=== PATIENT | male | born 1955 | race Two or more races ===

== ENCOUNTER 2016-04-02 16:07 | Inpatient (IN) | payer MEDICAID ==
[~2016-04-02] VITALS: Ht 177.8 cm; Wt 95.3 kg
[2016-04-02 16:19] VITALS: BP 110/62
[2016-04-02] MEDS ORDERED: Famotidine 20 MG/ 2ML VIAL IVP ONE (16:45)
[2016-04-02] MEDS ORDERED: Nitroglycerin 2% oint pkt TOPIC ONE (16:45)
[2016-04-02 16:58] LABS: BASOPHILS % (AUTO) 0.8 % (0.0-2.0); EOSINOPHILS % (AUTO) 0.6 % (0.0-3.0); LYMPHOCYTES % (AUTO) 17.8 % (20.0-45.0); MEAN CORPUSCULAR HEMOGLOBIN 31.9 PG (27.0-31.0); MEAN CORPUSCULAR HGB CONC 33.7 G/DL (32.0-36.0); MEAN CORPUSCULAR VOLUME 95 FL (80-99); MEAN PLATELET VOLUME 7.2 FL (6.5-10.1); MONOCYTES % (AUTO) 6.4 % (1.0-10.0); NEUTROPHILS % (AUTO) 74.5 % (45.0-75.0); PLATELET COUNT 127 K/UL (150-450); RED BLOOD COUNT 5.01 M/UL (4.70-6.10); RED CELL DISTRIBUTION WIDTH 12.2 % (11.6-14.8); WHITE BLOOD COUNT 6.3 K/UL (4.8-10.8)
[2016-04-02 17:04] LABS: INR 1.1 (0.9-1.1); PROTHROMBIN TIME 11.2 SEC (9.30-11.50)
[2016-04-02 17:10] LABS: TROPONIN I < 0.30 ng/mL (<=0.30)
[2016-04-02 17:12] LABS: ALANINE AMINOTRANSFERASE 39 U/L (3-41); ALBUMIN/GLOBULIN RATIO 1.3 (1.0-2.7); ANION GAP 11 (5-15); ASPARTATE AMINO TRANSFERASE 28 U/L (5-40); CARBON DIOXIDE 28 mEQ/L (20-30); CHLORIDE 103 mEQ/L (98-107); CREATININE 1.2 mg/dL (0.7-1.2); GLOMERULAR FILTRATION RATE > 60 mL/min (>60); HEMOLYSIS 18; POTASSIUM 4.8 mEQ/L (3.4-4.9); SODIUM 142 mEQ/L (135-145); TOTAL PROTEIN 6.8 g/dL (6.6-8.7)
[2016-04-02] MEDS ORDERED: Nitroglycerin Subl 0.4mg tab (Bottle Of 25) SL PRN (19:15)
[2016-04-02] MEDS ORDERED: Miralax 17gm pkt ORAL PRN (19:15)
[2016-04-02] MEDS ORDERED: Ketorolac 30mg Inj IV PRN (19:15)
[2016-04-02] MEDS ORDERED: DuoNeb 0.5-3(2.5)mg/3ml neb HHN PRN (19:15)
[2016-04-02] MEDS ORDERED: Morphine Sulfate 2mg/ml Inj IVP PRN (19:15)
[2016-04-02] MEDS ORDERED: Enalaprilat 2.5mg/2ml Inj IV PRN (19:15)
--- NOTE | 2016-04-02 21:53 | Emergency Room Report ---
History of Present Illness General Chief Complaint: Chest Pain Source: Patient Present Illness HPI Patient presents with chest pain. He was on the bus and exerted himself and felt pressure in the left side of his chest radiating to his shoulder and back. He felt the same pain about 2 months ago as he was exercising. His doctor evaluated him felt that he needed another treadmill. This was scheduled tomorrow. The patient does have angina and has had 5 stents placed. He he was exposed to secondhand smoke. He rates the pain in his chest as 0/10, but has pressure. Pain in his legs is 5/10 from neuropathy. He is on several medications for this , most recently lyrica. Previously he had neurontin, but this led to dizziness and was stopped. He sees a chronic pain doctor. 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 Today the patient also was diaphoretic and had nausea. He was given aspirin and nitroglycerin by paramedics. This led to the pain resolving but he still has pressure in his chest. Also feels some dizziness. No fever, chills, vomiting, diarrhea, melena, headache, rashes, anxiety, joint pain. Allergies: Coded Allergies: NAPROXEN (Verified Allergy, Unknown, 04/02/16) Patient History Past Medical History: see triage record Past Surgical History: PTCA Social History: Reports: smoking - second hand only Social History Narrative at home by self - daughters in [place] who want him to go there. Reviewed Nursing Documentation: PMH: Agreed, PSxH: Agreed Nursing Documentation-PMH Hx Hypertension: Yes - HYPERLIDEMIA Review of Systems All Other Systems: negative except mentioned in HPI Physical Exam Vital Signs Date Time Temp Pulse Resp B/P Pulse Ox O2 Delivery O2 Flow Rate FiO2 04/02/16 16:03 72 16 105/71 98 Room Air 04/02/16 16:19 98.6 Sp02 EP Interpretation: reviewed, normal General Appearance: well appearing, no apparent distress, GCS 15 Head: normocephalic Eyes: bilateral eye PERRL, bilateral eye normal inspection ENT: moist mucus membranes Neck: supple Respiratory: chest non-tender, lungs clear, normal breath sounds Cardiovascular #1: regular rate, rhythm Cardiovascular #2: 2+ radial (L) Gastrointestinal: normal inspection, normal bowel sounds, non tender, no mass, non-distended Musculoskeletal: back normal, gait/station normal, normal range of motion Neurologic: alert, oriented x3, grossly normal Psychiatric: mood/affect normal Skin: normal inspection, warm/dry Medical Decision Making Diagnostic Impression: Primary Impression: ACS (acute coronary syndrome) Additional Impression: Neuropathic pain of both legs ER Course Patient presents with chest pain and pressure post multiple angioplasties. Recent exertional symptoms. Ddx: ACS, AMI, chest wall pain, GERD, anxiety amongst others. Emergent evaluation with labs, EKG, CXR. Treatment in field with aspirin and nitrates helped. Will continue nitrolpaste as well as cardiac monitoring. Patient declines further pain treatment. EKG without injury. Labs with negative troponin. Patient has significant cardiac risk factors. Patient needs to be admitted to the hospital for observation with serial troponins done. He is improved right now however he still feels some dizziness. Nitrates stopped. Improved dizziness after d/c nitrates. Admit telemetry Dr. Preciado. Laboratory Tests Test 04/02/16 16:45 White Blood Count 6.3 K/UL (4.8-10.8) Red Blood Count 5.01 M/UL (4.70-6.10) Hemoglobin 16.0 G/DL (14.2-18.0) Hematocrit 47.4 % (42.0-52.0) Mean Corpuscular Volume 95 FL (80-99) Mean Corpuscular Hemoglobin 31.9 PG (27.0-31.0) H Mean Corpuscular Hemoglobin Concent 33.7 G/DL (32.0-36.0) Red Cell Distribution Width 12.2 % (11.6-14.8) Platelet Count 127 K/UL (150-450) L Mean Platelet Volume 7.2 FL (6.5-10.1) Neutrophils (%) (Auto) 74.5 % (45.0-75.0) Lymphocytes (%) (Auto) 17.8 % (20.0-45.0) L Monocytes (%) (Auto) 6.4 % (1.0-10.0) Eosinophils (%) (Auto) 0.6 % (0.0-3.0) Basophils (%) (Auto) 0.8 % (0.0-2.0) Prothrombin Time 11.2 SEC (9.30-11.50) Prothrombin Time INR 1.1 (0.9-1.1) PTT 21 SEC (23-33) L Sodium Level 142 mEQ/L (135-145) Potassium Level 4.8 mEQ/L (3.4-4.9) Chloride Level 103 mEQ/L (98-107) Carbon Dioxide Level 28 mEQ/L (20-30) Anion Gap 11 (5-15) Blood Urea Nitrogen 16 mg/dL (7-23) Creatinine 1.2 mg/dL (0.7-1.2) Estimate Glomerular Filtration Rate > 60 mL/min (>60) Glucose Level 140 mg/dL (74-106) H Calcium Level 9.0 mg/dL (8.6-10.2) Total Bilirubin 0.9 mg/dL (0.0-1.2) Aspartate Amino Transferase (AST) 28 U/L (5-40) Alanine Aminotransferase (ALT) 39 U/L (3-41) Alkaline Phosphatase 77 U/L (40-129) Total Creatine Kinase 384 U/L (38-174) H Troponin I < 0.30 ng/mL (<=0.30) Pro-B-Type Natriuretic Peptide 44 pg/mL (0-125) Total Protein 6.8 g/dL (6.6-8.7) Albumin 3.9 g/dL (3.5-5.2) Globulin 2.9 g/dL Albumin/Globulin Ratio 1.3 (1.0-2.7) EKG Diagnostic Results Rate: normal Rhythm: NSR ST Segments: no acute changes Rhythm Strip Diag. Results EP Interpretation: yes Rhythm: NSR, no PVC's, no ectopy Chest X-Ray Diagnostic Results EP Interpretation: Yes Findings: no consolidation, no effusion, no pneumothorax, no acute cardiopulmonary disease Number of Views: 1 Last Vital Signs Date Time Temp Pulse Resp B/P Pulse Ox O2 Delivery O2 Flow Rate FiO2 04/02/16 16:50 106/61 04/02/16 16:34 66 16 Room Air 04/02/16 16:19 98.6 99 Status: improved Disposition: ADMITTED INPATIENT Condition: Serious Referrals: NOT CHOSEN EMILY/,REFERRING (PCP) Marcos Virgen M.D. Apr 02, 2016 21:53
[2016-04-02 23:19] LABS: APPEARANCE,URINE CLEAR; KETONES,URINE NEGATIVE (NEGATIVE); LEUKOCYTE ESTERASE ,URINE 1+ (NEGATIVE); NITRITE,URINE NEGATIVE (NEGATIVE); PH,URINE 6 (4.5-8.0); PROTEIN,URINE 1+ (NEGATIVE); UROBILINOGEN,URINE NORMAL MG/DL (0.0-1.0)
[2016-04-02 23:30] VITALS: BP 110/65
[2016-04-02 23:42] LABS: BACTERIA,URINE FEW /HPF; MUCUS,URINE FEW /LPF (NONE/OCC); RBC,URINE 0 /HPF (0 - 0); SQUAMOUS EPITHELIAL CELL,UR FEW /LPF (NONE/OCC); WBC,URINE 0-2 /HPF (0 - 0)
[2016-04-03] MEDS ORDERED: UNOBMED (01:29)
[2016-04-03] MEDS ORDERED: REGLAN10 MG ORAL ×2 (01:37→04:06)
[2016-04-03] MEDS ORDERED: HYDROCODON-ACE1 EA13 ORAL (01:37)
[2016-04-03] MEDS ORDERED: VENTOLIN HFA18 GM INH (01:37)
[2016-04-03] MEDS ORDERED: DIPHENHYDRAMINE25 M1 ORAL ×2 (01:37→04:06)
[2016-04-03] MEDS ORDERED: ZANTAC150 MG ORAL (01:37)
[2016-04-03] MEDS ORDERED: ASPIR 8181 MG ORAL (01:37)
[2016-04-03] MEDS ORDERED: AMLODIPINE BESY10 MG ORAL (01:37)
[2016-04-03] MEDS ORDERED: ATORVASTATIN CA80 MG ORAL (01:37)
[2016-04-03] MEDS ORDERED: BACLOFEN20 MG ORAL (01:37)
[2016-04-03] MEDS ORDERED: NITROSTAT0.4 M1 SL (01:37)
[2016-04-03] MEDS ORDERED: MELOXICAM15 MG PO (01:37)
[2016-04-03] MEDS ORDERED: LYRICA25 MG ORAL (01:37)
[2016-04-03] MEDS ORDERED: LISINOPRIL20 MG ORAL (01:37)
[2016-04-03] MEDS ORDERED: ISOSORBIDE DINI30 MG ORAL (01:37)
[2016-04-03] MEDS ORDERED: RANEXA500 MG ORAL (01:37)
[2016-04-03] MEDS ORDERED: HYDROCHLOROTHIA25 MG ORAL (01:37)
[2016-04-03] MEDS ORDERED: TRAMADOL HCL50 MG ORAL (01:37)
[2016-04-03] MEDS ORDERED: FISH OIL CAP1000 MG ORAL (01:38)
[2016-04-03 01:40] VITALS: BP 120/68
[2016-04-03 04:00] VITALS: BP 135/79
--- NOTE | 2016-04-03 07:19 | Cardiology Progress Note ---
Assessment/Plan Assessment/Plan chest pain cad hs of pci htn obeisty awiat 2nd trop if neg to have stress test he was on his way to dr santana office to have a stres test yest he sat when he devlopped wade n if stres test neg ok to dc home Objective Last 24 Hour Vital Signs Date Time Temp Pulse Resp B/P Pulse Ox O2 Delivery O2 Flow Rate FiO2 04/03/16 04:00 61 04/03/16 04:00 98.0 56 18 135/79 98 Room Air 04/03/16 01:40 98.2 81 16 120/68 100 Room Air 04/03/16 01:40 98.2 81 16 120/68 100 Room Air 04/02/16 23:30 98.4 78 16 110/65 100 Room Air 04/02/16 16:50 106/61 04/02/16 16:34 66 16 Room Air 04/02/16 16:19 98.6 66 16 110/62 99 Room Air 04/02/16 16:03 72 16 105/71 98 Room Air Intake and Output 04/02/16 04/03/16 19:00 07:00 Intake Total 240 ml Balance 240 ml Intake Oral 240 ml # Voids 4 Laboratory Tests Test 04/02/16 16:45 04/02/16 23:00 White Blood Count 6.3 K/UL (4.8-10.8) Red Blood Count 5.01 M/UL (4.70-6.10) Hemoglobin 16.0 G/DL (14.2-18.0) Hematocrit 47.4 % (42.0-52.0) Mean Corpuscular Volume 95 FL (80-99) Mean Corpuscular Hemoglobin 31.9 PG (27.0-31.0) H Mean Corpuscular Hemoglobin Concent 33.7 G/DL (32.0-36.0) Red Cell Distribution Width 12.2 % (11.6-14.8) Platelet Count 127 K/UL (150-450) L Mean Platelet Volume 7.2 FL (6.5-10.1) Neutrophils (%) (Auto) 74.5 % (45.0-75.0) Lymphocytes (%) (Auto) 17.8 % (20.0-45.0) L Monocytes (%) (Auto) 6.4 % (1.0-10.0) Eosinophils (%) (Auto) 0.6 % (0.0-3.0) Basophils (%) (Auto) 0.8 % (0.0-2.0) Prothrombin Time 11.2 SEC (9.30-11.50) Prothromb Time International Ratio 1.1 (0.9-1.1) Activated Partial Thromboplast Time 21 SEC (23-33) L Sodium Level 142 mEQ/L (135-145) Potassium Level 4.8 mEQ/L (3.4-4.9) Chloride Level 103 mEQ/L (98-107) Carbon Dioxide Level 28 mEQ/L (20-30) Anion Gap 11 (5-15) Blood Urea Nitrogen 16 mg/dL (7-23) Creatinine 1.2 mg/dL (0.7-1.2) Estimat Glomerular Filtration Rate > 60 mL/min (>60) Glucose Level 140 mg/dL (74-106) H Calcium Level 9.0 mg/dL (8.6-10.2) Total Bilirubin 0.9 mg/dL (0.0-1.2) Aspartate Amino Transf (AST/SGOT) 28 U/L (5-40) Alanine Aminotransferase (ALT/SGPT) 39 U/L (3-41) Alkaline Phosphatase 77 U/L (40-129) Total Creatine Kinase 384 U/L (38-174) H Troponin I < 0.30 ng/mL (<=0.30) Pro-B-Type Natriuretic Peptide 44 pg/mL (0-125) Total Protein 6.8 g/dL (6.6-8.7) Albumin 3.9 g/dL (3.5-5.2) Globulin 2.9 g/dL Albumin/Globulin Ratio 1.3 (1.0-2.7) Urine Color Yellow Urine Appearance Clear Urine pH 6 (4.5-8.0) Urine Specific [place] 1.020 (1.005-1.035) Urine Protein 1+ (NEGATIVE) H Urine Glucose (UA) 1+ (NEGATIVE) H Urine Ketones Negative (NEGATIVE) Urine Occult Blood Negative (NEGATIVE) Urine Nitrite Negative (NEGATIVE) Urine Bilirubin Negative (NEGATIVE) Urine Urobilinogen Normal MG/DL (0.0-1.0) Urine Leukocyte Esterase 1+ (NEGATIVE) H Urine RBC 0 /HPF (0 - 0) Urine WBC 0-2 /HPF (0 - 0) Urine Squamous Epithelial Cells Few /LPF (NONE/OCC) Urine Bacteria Few /HPF (NONE) Urine Mucus Few /LPF (NONE/OCC) H Urine Opiates Screen Positive (NEGATIVE) H Urine Barbiturates Screen Negative (NEGATIVE) Phencyclidine (PCP) Screen Negative (NEGATIVE) Urine Amphetamines Screen Positive (NEGATIVE) H Urine Benzodiazepines Screen Negative (NEGATIVE) Urine Cocaine Screen Negative (NEGATIVE) Urine Marijuana (THC) Screen Negative (NEGATIVE) FRANCHESCA STEPHEN Apr 03, 2016 07:19
[2016-04-03] MEDS ORDERED: Norco 10mg/325mg tab ORAL PRN (07:30)
[2016-04-03] MEDS ORDERED: traMADol 50mg tab ORAL PRN (07:30)
[2016-04-03 07:44] LABS: BASOPHILS % (AUTO) 0.9 % (0.0-2.0); EOSINOPHILS % (AUTO) 0.8 % (0.0-3.0); LYMPHOCYTES % (AUTO) 27.6 % (20.0-45.0); MEAN CORPUSCULAR HEMOGLOBIN 32.6 PG (27.0-31.0); MEAN CORPUSCULAR HGB CONC 34.9 G/DL (32.0-36.0); MEAN CORPUSCULAR VOLUME 93 FL (80-99); MEAN PLATELET VOLUME 8.3 FL (6.5-10.1); NEUTROPHILS % (AUTO) 63.7 % (45.0-75.0); PLATELET COUNT 131 K/UL (150-450); RED BLOOD COUNT 4.79 M/UL (4.70-6.10); RED CELL DISTRIBUTION WIDTH 12.2 % (11.6-14.8); WHITE BLOOD COUNT 5.5 K/UL (4.8-10.8)
[2016-04-03 07:50] LABS: TROPONIN I < 0.30 ng/mL (<=0.30)
[2016-04-03 07:56] VITALS: BP 129/78
[2016-04-03 07:57] LABS: INR 1.1 (0.9-1.1); PROTHROMBIN TIME 11.4 SEC (9.30-11.50)
[2016-04-03 08:36] LABS: CHOLESTEROL 156 mg/dL (< 200); CHOLESTEROL/HDL RATIO 4.5 (3.3-4.4); CRP QUANT < 0.3 mg/dL (< 0.5); HEMOLYSIS 17; LDL CHOLESTEROL (CALC.) 74 mg/dL (60-99)
[2016-04-03] MEDS ORDERED: Heparin 5000 units/ml inj SUBQ SCH (09:00)
[2016-04-03] MEDS ORDERED: Aspirin Baby 81mg ORAL SCH (09:00)
[2016-04-03] MEDS ORDERED: Lyrica 25mg cap ORAL SCH (09:00)
[2016-04-03] MEDS ORDERED: Aspirin EC 81mg tab ORAL SCH (11:15)
[2016-04-03 11:23] VITALS: BP 140/81
[2016-04-03] MEDS ORDERED: Atorvastatin 80mg tab ORAL SCH (11:30)
[2016-04-03] MEDS ORDERED: Meloxicam 15 MG TAB ORAL SCH (11:30)
--- NOTE | 2016-04-03 11:58 | History and Physical ---
History of Present Illness General Date patient seen: Apr 03, 2016 Reason for Hospitalization: Chest Pain Present Illness HPI 61 year old male with hx of CAD and PCI presented to ER with chest pain. The patient does have angina and has had 5 stents placed. He rates the pain in his chest as 0/10, but has pressure. pt is admitted telemetry for further evaluation Allergies: Coded Allergies: NAPROXEN (Verified Allergy, Unknown, 04/02/16) Medication History Scheduled Albuterol Sulfate (Ventolin Hfa), 2 PUFFS INH EVERY 6 HOURS, (Reported) Amlodipine Besylate* (Amlodipine Besylate*), 10 MG ORAL DAILY, (Reported) Aspirin* (Aspir 81*), 81 MG ORAL DAILY, (Reported) Atorvastatin Calcium* (Lipitor*), 80 MG ORAL DAILY, (Reported) Baclofen* (Lioresal*), 20 MG ORAL BID, (Reported) Diphenhydramine Hcl* (Diphenhydramine Hcl*), 50 MG ORAL Q8H, (Reported) Hydrochlorothiazide* (Hydrochlorothiazide*), 25 MG ORAL DAILY, (Reported) Isosorbide Dinitrate* (Isordil*), 30 MG ORAL DAILY, (Reported) Lisinopril (Lisinopril*), 20 MG ORAL BID, (Reported) Meloxicam* (Meloxicam*), 15 MG PO DAILY, (Reported) Metoclopramide Hcl* (Reglan*), 10 MG ORAL BID, (Reported) Pregabalin (Lyrica), 25 MG ORAL BID, (Reported) Ranitidine Hcl* (Zantac*), 150 MG ORAL BID, (Reported) Ranolazine* (Ranexa*), 500 MG ORAL BID, (Reported) Scheduled PRN Hydrocodone Bit/Acetaminophen 10-325* (Hydrocodon-Acetaminophn 10-325*), 1 TAB ORAL Q6H PRN for For Pain, (Reported) Nitroglycerin (Nitrostat), 0.4 MG SL Q5M X3 DOSES PRN for CHEST PAIN, (Reported) Tramadol Hcl* (Ultram*), 50 MG ORAL Q6H PRN for For Pain, (Reported) Discontinued Medications Fish Oil (Fish Oil 1,000 mg Capsule), 1,000 MG ORAL, (Reported) Discontinued Reason: Pt stopped taking med Patient History Healthcare decision maker Resuscitation status Full Code Advanced Directive on File Past Medical/Surgical History Past Medical/Surgical History: (1) CAD (coronary artery disease) (2) Neuropathic pain of both legs Review of Systems All Other Systems: negative except mentioned in HPI Physical Exam General Appearance: WD/WN, no apparent distress Lines, tubes and drains: peripheral, central line HEENT: normocephalic, atraumatic Neck: non-tender, normal alignment Respiratory/Chest: chest wall non-tender, lungs clear Cardiovascular/Chest: normal peripheral pulses, normal rate Abdomen: normal bowel sounds Last 24 Hour Vital Signs Date Time Temp Pulse Resp B/P Pulse Ox O2 Delivery O2 Flow Rate FiO2 04/03/16 11:23 97.9 56 20 140/81 100 Room Air 04/03/16 07:56 97.3 54 20 129/78 97 Room Air 04/03/16 04:00 61 04/03/16 04:00 98.0 56 18 135/79 98 Room Air 04/03/16 01:40 98.2 81 16 120/68 100 Room Air 04/03/16 01:40 98.2 81 16 120/68 100 Room Air 04/02/16 23:30 98.4 78 16 110/65 100 Room Air 04/02/16 16:50 106/61 04/02/16 16:34 66 16 Room Air 04/02/16 16:19 98.6 66 16 110/62 99 Room Air 04/02/16 16:03 72 16 105/71 98 Room Air Intake and Output 04/02/16 04/03/16 19:00 07:00 Intake Total 240 ml Balance 240 ml Intake Oral 240 ml # Voids 4 Laboratory Tests Test 04/02/16 16:45 04/02/16 23:00 04/03/16 07:00 White Blood Count 6.3 K/UL (4.8-10.8) 5.5 K/UL (4.8-10.8) Red Blood Count 5.01 M/UL (4.70-6.10) 4.79 M/UL (4.70-6.10) Hemoglobin 16.0 G/DL (14.2-18.0) 15.6 G/DL (14.2-18.0) Hematocrit 47.4 % (42.0-52.0) 44.7 % (42.0-52.0) Mean Corpuscular Volume 95 FL (80-99) 93 FL (80-99) Mean Corpuscular Hemoglobin 31.9 PG (27.0-31.0) H 32.6 PG (27.0-31.0) H Mean Corpuscular Hemoglobin Concent 33.7 G/DL (32.0-36.0) 34.9 G/DL (32.0-36.0) Red Cell Distribution Width 12.2 % (11.6-14.8) 12.2 % (11.6-14.8) Platelet Count 127 K/UL (150-450) L 131 K/UL (150-450) L Mean Platelet Volume 7.2 FL (6.5-10.1) 8.3 FL (6.5-10.1) Neutrophils (%) (Auto) 74.5 % (45.0-75.0) 63.7 % (45.0-75.0) Lymphocytes (%) (Auto) 17.8 % (20.0-45.0) L 27.6 % (20.0-45.0) Monocytes (%) (Auto) 6.4 % (1.0-10.0) 7.0 % (1.0-10.0) Eosinophils (%) (Auto) 0.6 % (0.0-3.0) 0.8 % (0.0-3.0) Basophils (%) (Auto) 0.8 % (0.0-2.0) 0.9 % (0.0-2.0) Prothrombin Time 11.2 SEC (9.30-11.50) 11.4 SEC (9.30-11.50) Prothromb Time International Ratio 1.1 (0.9-1.1) 1.1 (0.9-1.1) Activated Partial Thromboplast Time 21 SEC (23-33) L 25 SEC (23-33) Sodium Level 142 mEQ/L (135-145) Potassium Level 4.8 mEQ/L (3.4-4.9) Chloride Level 103 mEQ/L (98-107) Carbon Dioxide Level 28 mEQ/L (20-30) Anion Gap 11 (5-15) Blood Urea Nitrogen 16 mg/dL (7-23) Creatinine 1.2 mg/dL (0.7-1.2) Estimat Glomerular Filtration Rate > 60 mL/min (>60) Glucose Level 140 mg/dL (74-106) H Calcium Level 9.0 mg/dL (8.6-10.2) Total Bilirubin 0.9 mg/dL (0.0-1.2) Aspartate Amino Transf (AST/SGOT) 28 U/L (5-40) Alanine Aminotransferase (ALT/SGPT) 39 U/L (3-41) Alkaline Phosphatase 77 U/L (40-129) Total Creatine Kinase 384 U/L (38-174) H Troponin I < 0.30 ng/mL (<=0.30) < 0.30 ng/mL (<=0.30) Pro-B-Type Natriuretic Peptide 44 pg/mL (0-125) Total Protein 6.8 g/dL (6.6-8.7) Albumin 3.9 g/dL (3.5-5.2) Globulin 2.9 g/dL Albumin/Globulin Ratio 1.3 (1.0-2.7) Urine Color Yellow Urine Appearance Clear Urine pH 6 (4.5-8.0) Urine Specific [place] 1.020 (1.005-1.035) Urine Protein 1+ (NEGATIVE) H Urine Glucose (UA) 1+ (NEGATIVE) H Urine Ketones Negative (NEGATIVE) Urine Occult Blood Negative (NEGATIVE) Urine Nitrite Negative (NEGATIVE) Urine Bilirubin Negative (NEGATIVE) Urine Urobilinogen Normal MG/DL (0.0-1.0) Urine Leukocyte Esterase 1+ (NEGATIVE) H Urine RBC 0 /HPF (0 - 0) Urine WBC 0-2 /HPF (0 - 0) Urine Squamous Epithelial Cells Few /LPF (NONE/OCC) Urine Bacteria Few /HPF (NONE) Urine Mucus Few /LPF (NONE/OCC) H Urine Opiates Screen Positive (NEGATIVE) H Urine Barbiturates Screen Negative (NEGATIVE) Phencyclidine (PCP) Screen Negative (NEGATIVE) Urine Amphetamines Screen Positive (NEGATIVE) H Urine Benzodiazepines Screen Negative (NEGATIVE) Urine Cocaine Screen Negative (NEGATIVE) Urine Marijuana (THC) Screen Negative (NEGATIVE) C-Reactive Protein, Quantitative < 0.3 mg/dL (< 0.5) Triglycerides Level 235 mg/dL (< 150) H Cholesterol Level 156 mg/dL (< 200) LDL Cholesterol 74 mg/dL (60-99) HDL Cholesterol 35 mg/dL (> 60) Cholesterol/HDL Ratio 4.5 (3.3-4.4) H Thyroid Stimulating Hormone (TSH) 1.050 uIU/mL (0.300-4.500) Height (Feet): 5 Height (Inches): 10.00 Weight (Pounds): 210 Medications Current Medications Medications (Trade) Dose Ordered Sig/Morgan Route PRN Reason Start Time Stop Time Status Last Admin Dose Admin Acetaminophen (Tylenol) 650 mg Q4H PRN ORAL FEVER 04/02/16 19:15 05/02/16 19:14 Acetaminophen/ Hydrocodone Bitart ([place] 10/325) 1 ea Q6H PRN ORAL FOR MODERATE PAIN 04/03/16 07:30 04/10/16 07:29 Albuterol Sulfate (Proventil MDI) 2 puff EVERY 6 HOURS INH 04/03/16 12:00 05/03/16 11:59 Albuterol/ Ipratropium (DuoNeb 0.5-3(2.5)mg/3ml) 3 ml Q4H PRN HHN Shortness of Breath 04/02/16 19:15 04/07/16 19:14 Amlodipine Besylate (Norvasc) 10 mg DAILY ORAL 04/03/16 11:15 05/03/16 11:14 Aspirin (ASA) 162 mg DAILY ORAL 04/03/16 09:00 05/03/16 08:59 04/03/16 10:36 Aspirin (Ecotrin) 81 mg DAILY ORAL 04/03/16 11:15 05/03/16 11:14 Atorvastatin Calcium (Lipitor) 80 mg DAILY ORAL 04/03/16 11:30 05/03/16 11:29 Baclofen (Lioresal) 20 mg BID ORAL 04/03/16 11:15 05/03/16 11:14 Diphenhydramine HCl (Benadryl) 50 mg Q8H ORAL 04/03/16 14:00 05/03/16 13:59 Enalaprilat (Vasotec) 2.5 mg Q6H PRN IV sbp more than 160 04/02/16 19:15 05/02/16 19:14 Heparin Sodium (Porcine) (Heparin 5000 units/ml) 5,000 units EVERY 12 HOURS SUBQ 04/03/16 09:00 05/03/16 08:59 Hydrochlorothiazide (Hydrodiuril) 25 mg DAILY ORAL 04/03/16 11:30 05/03/16 11:29 Ketorolac Tromethamine (Toradol 30mg) 30 mg Q6HR PRN IV moderate pain ( 4-6) 04/02/16 19:15 04/07/16 19:14 UNV Lisinopril (Prinivil) 20 mg BID ORAL 04/03/16 11:30 05/03/16 11:29 Meloxicam (Mobic) 15 mg DAILY ORAL 04/03/16 11:30 05/03/16 11:29 Metoclopramide HCl (Reglan) 10 mg BID ORAL 04/03/16 11:30 05/03/16 11:29 Morphine Sulfate (Morphine Sulfate) 2 mg Q4H PRN IVP severe Pain (Pain Scale 7-10) 04/02/16 19:15 04/09/16 19:14 Nitroglycerin (Ntg) 0.4 mg Q5MIN X 3 DOSES PRN SL Prn Chest Pain 04/02/16 19:15 05/02/16 19:14 Ondansetron HCl (Zofran) 4 mg Q6H PRN IVP Nausea & Vomiting 04/02/16 19:15 05/02/16 19:14 Polyethylene Glycol (Miralax) 17 gm DAILYPRN PRN ORAL Constipation 04/02/16 19:15 05/02/16 19:14 Pregabalin (Lyrica) 25 mg BID ORAL 04/03/16 11:30 05/03/16 11:29 Ranitidine HCl (Zantac) 150 mg BID ORAL 04/03/16 11:30 05/03/16 11:29 Ranolazine (Ranexa ER 500mg) 500 mg BID ORAL 04/03/16 11:30 05/03/16 11:29 Temazepam (Restoril) 15 mg HSPRN PRN ORAL Insomnia 04/02/16 19:15 04/09/16 19:14 Tramadol HCl (Ultram) 50 mg Q6H PRN ORAL For Pain 04/03/16 07:30 04/10/16 07:29 Assessment/Plan Problem List: (1) Acute chest pain ICD Codes: R07.9 - Chest pain, unspecified SNOMED: 207188563 (2) ACS (acute coronary syndrome) ICD Codes: I24.9 - Acute ischemic heart disease, unspecified SNOMED: 412378327 (3) CAD (coronary artery disease) ICD Codes: I25.10 - Atherosclerotic heart disease of [place] coronary artery without angina pectoris SNOMED: 48932336 Assessment/Plan serial ekg, troponin cardiology to see stress studies resume home meds CRISTOPHER ROQUE Apr 03, 2016 11:58
[2016-04-03] MEDS ORDERED: Albuterol 90mcg Inhaler 8gm INH SCH (12:00)
[2016-04-03] MEDS: Lyrica 25mg cap ORAL SCH ×2 (12:59→17:15)
[2016-04-03] MEDS: Ranolazine 500mg tab ORAL SCH ×2 (13:00→17:14)
[2016-04-03] MEDS: Lisinopril 20mg tab ORAL SCH ×2 (13:00→17:15)
--- NOTE | 2016-04-03 15:43 | Diagnostic Imaging Report ---
Indication: chest pain Technique: The study was conducted under the supervision of a long term acute care registered nurse. Exercise on a treadmill utilizing (Leroy protocol) followed by intravenous administration of 32.6 mCi of technetium 99m Myoview was performed. Three plane SPECT imaging of the heart was then performed. A resting study was performed as part of the one-day protocol with 10.6 mCi of technetium 99m myoview injected intravenously at that time. Three plane SPECT imaging of the heart was obtained. Comparison: None Clinical data: Resting HR: 64. Peak exercise HR: 122 Resting BP: 140/76 Peak exercise BP: 155/76. Patient exercised for 7 minutes. A electively stopped because of exertional level. Please refer to cardiology notes. 1. Clinical response: Ischemic 2. Electrocardiographic response: Non ischemic Findings: The myocardial perfusion scan demonstrates fixed myocardial perfusion defect in the inferolateral wall. No definite reversible lesions are identified. LVEF is estimated at 65%. Impression: Suspected infarct involving the inferolateral wall. Please correlate clinically. No definite evidence of segmental reversible perfusion defects to suggest ischemia.
[2016-04-03 16:00] VITALS: BP 128/72
[2016-04-03 17:15] VITALS: BP 128/72
--- NOTE | 2016-04-03 17:51 | Discharge Instructions ---
Discharge Instructions Discharge Instructions Special Instructions fu with dr galindo For Congestive Heart Failure Reminder Report to your physician any weight gain of 5 pounds or more in one week. FRANCHESCA STEPHEN Apr 03, 2016 17:51
--- NOTE | 2016-04-03 19:38 | Consultation ---
DATE OF CONSULTATION: CARDIOLOGY CONSULTATION CONSULTING PHYSICIAN: Soham Haley M.D. REFERRING PHYSICIAN: So Preciado M.D. REASON FOR REFERRAL: Chest pain. HISTORY OF PRESENT ILLNESS: This is a 60-year-old gentleman with reportedly three episodes of a heart attack previously with three separate stents, the last one in 2012 at [facility], followed by Dr. Shaji De Anda, has been having some episodes of chest pain going until about a year ago and was started on some nitrates apparently according to himself and that apparently helped him and he resumed well, but he was supposed to go to Dr. De Anda yesterday and as usual he walked his dog to bus, to Dr. De Anda's office, in the middle of the bus started having diaphoresis and then some chest pain and dizziness, got off the bus and the concrete rod buster called 911. As soon he got off the bus he sat on the street, the wind apparently dried his sweat off but he has had chest pain. He did not take nitroglycerin. Paramedics were summoned and apparently when the paramedics got there, he was given some sublingual nitroglycerin by the paramedics. The paramedics indicated the patient was sitting on the street, alert and oriented x3, complaining of chest pain that has resolved prior to their arrival, they say he took his own nitroglycerin but the patient tells me he had not taken any nitroglycerin until the clipper automatic gave him. Once the paramedics gave him, he actually improved. Apparently when they checked the blood sugar he was told his blood sugar was 50 and eventually second nitroglycerin was administered that took pain completely, by the time he arrived here apparently was chest pain free. He thinks the entire episode of chest pain lasted approximately half an hour. His initial blood pressure by clipper automatic was 95/61. Paramedics indicated that his pain has resolved prior to admission and he was given nitroglycerin. His EKG in the ambulance was fairly unremarkable. The patient was brought to the emergency room. He has not had any more chest pain. There is no PND or orthopnea. He uses one pillow. There is no dizziness or lightheadedness unless he stands up really fast. No palpitations. He does experience anginal symptoms when he goes up [place] in [facility] apparently that is the reason why he was having evaluation. The patient has experienced pain yesterday is described as somewhat heavy sitting on his chest, however, this is completely different than his prior myocardial infarction pains that were more sharp and stabbing in nature. PAST MEDICAL HISTORY: Positive for high blood pressure. He does have a history of heart attack, coronary artery disease, coronary artery stent. No cancer. No stroke. No hepatitis. No tuberculosis. He does have history of asthma. No ulcers except one was just produced by Naprosyn previously. He has history of kidney stones. No liver disease. No thyroid disease. No prostate problems. MEDICATIONS: His medications at home include Ranexa 500 mg twice a day, Isordil 30 mg once a day, aspirin 81 mg, hydrochlorothiazide 25 mg, lisinopril 20 mg two times a day and Norvasc 10 mg a day. He takes hydrocodone and tramadol. He takes Lyrica 25 mg twice a day, Lidoderm patch, meloxicam 15 mg, baclofen 20 mg every six to eight hours, Zantac 150 mg twice a day, Lipitor 80 mg, Reglan, Benadryl, Ventolin HFA, and fish oil. ALLERGIES: He is not allergic to any medication, but he was intolerant to Naprosyn. SOCIAL HISTORY: He denies smoking. Denies any alcohol use. Denies any amphetamine use. REVIEW OF SYSTEMS: Gastrointestinal System: He did have some nausea yesterday, but that has resolved. No bloody stools or black tarry. Genitourinary System: Negative. Pulmonary System: Negative. Constitutional System: Negative. Musculoskeletal: Back pain, some lower extremity pain. Neurologic System: He had muscle cramps in his legs in certain positions. PHYSICAL EXAMINATION: GENERAL: Shows to be overweight middle-aged gentleman, in no apparent distress. NECK: Supple. No jugular venous distention. No abdominojugular reflux noted. LUNGS: Clear to auscultation and percussion. CARDIAC: S1 is normal. S2 is normal. Regular rate and rhythm. No heaves, thrills, gallops, or rubs are noted. ABDOMEN: Soft and obese. Positive bowel sounds. Nontender. EXTREMITIES: There is no clubbing, cyanosis, or edema. NEUROLOGIC: He is awake, alert, responsive, in no apparent distress. LABORATORY AND DIAGNOSTIC DATA: Urinalysis is currently unremarkable. His white count was 6.3, hemoglobin 16, and platelet count of 127,000. Sodium was 142, potassium 4.8, chloride 103, bicarbonate 28, BUN of 16, creatinine 1.2, and glucose of 140. Liver function tests are normal. CK of 284. Troponin less than 0.3 in the first occasion. ProBNP is only 44. Remainder of the cardiac enzymes pending. INR is 1.1 and PTT 22. Toxicology screen is positive for opiates and positive for amphetamines. His electrocardiogram from last night shows normal sinus rhythm, some Q-waves in inferior leads, but not enough to qualify for an inferior infarct. ASSESSMENT AND PLAN: 1. Chest pain. 2. Coronary artery disease, history of stents. 3. Hypertension. 4. Back pain. 5. Hyperlipidemia. PLAN: Dr. Preciado, this patient was seen in cardiac consultation. The patient's first echocardiogram was unremarkable. His first set of cardiac enzymes are negative and second set is pending at the present time. His EKG at least the first one is unremarkable. I will order a second EKG, pending the results of the second cardiac enzymes. He will undergo stress testing that was planned yesterday. His episodes of chest pain apparently resolved with nitroglycerin and it is possible that it is just purely anginal symptom and not necessarily an infarction. He should be continued on his usual aspirin and other blood pressure medications and if the second set of cardiac enzymes negative, we will attempt an exercise stress test for him for today. Soham Haley M.D. DR: Medhat JOB#: [id number] CC:
--- NOTE | 2016-04-04 15:07 | Cardiology Report ---
APPROVED REPORT EXAM: Two-dimensional and M-mode echocardiogram with Doppler and color Doppler. INDICATION Left Ventricular Function M-Mode DIMENSIONS IVSd1.5 (0.7-1.1cm)Left Atrium (MM)4.6 (1.6-4.0cm) LVDd4.6 (3.5-5.6cm)Aortic Root3.2 (2.0-3.7cm) PWd2.2 (0.7-1.1cm)Aortic Cusp Exc.2.2 (1.5-2.0cm) LVDs4.0 (2.5-4.0cm) PWs1.4 cm Normal left ventricular chamber size, systolic function and wall motion. Left ventricular ejection fraction estimated to be 55%. Mild left ventricular hypertrophy. Anterior Echo-free space, may be due to pericardial fat or effusion. No evidence of pericardial effusion. Mild left atrial enlargement. Mild right ventricular enlargement. Right atria is within normal limits. Mild focal aortic valve sclerosis with adequate cusp excursion. Mildly thickened mitral valve leaflets with normal excursion. Mild mitral annulus and aortic root calcification. Pulmonic valve not well visualized. Normal tricuspid valve structure. IVC dilated at 1.8 cm with physiologic collapse. A color flow and spectral Doppler study was performed and revealed: Trace aortic regurgitation. Trace mitral regurgitation. Mitral inflow velocities indicates possible pseudo normalization pattern implying significant left ventricular diastolic dysfunction (Grade II). Trace tricuspid regurgitation. Tricuspid systolic velocities suggests peak right ventricular systolic pressure of 17 mmHg. No pulmonic regurgitation present.
--- NOTE | 2016-04-06 15:31 | Discharge Summary ---
Discharge Summary Hospital Course Date of Admission Apr 02, 2016 at 18:40 Date of Discharge Apr 03, 2016 at 19:25 Admitting Diagnosis chest pain HPI Suleiman Mandujano is a 61 year old male who was admitted on Apr 02, 2016 at 18:40 for Chest Pain Hospital Course dc summary # [id number] Discharge Medications Continued Medications: Albuterol Sulfate (Ventolin Hfa) 18 Gm Hfa.aer.ad 2 PUFFS INH EVERY 6 HOURS, #18 GM 0 Refills Amlodipine Besylate* (Amlodipine Besylate*) 10 Mg Tablet 10 MG ORAL DAILY, TAB Aspirin* (Aspir 81*) 81 Mg Tablet.dr 81 MG ORAL DAILY, TAB Atorvastatin Calcium* (Lipitor*) 80 Mg Tablet 80 MG ORAL DAILY, TAB Baclofen* (Lioresal*) 20 Mg Tablet 20 MG ORAL BID, TAB Diphenhydramine Hcl* (Diphenhydramine Hcl*) 25 Mg Capsule 50 MG ORAL Q8H for Itching, #30 CAP 0 Refills Hydrochlorothiazide* (Hydrochlorothiazide*) 25 Mg Tablet 25 MG ORAL DAILY, TAB Hydrocodone Bit/Acetaminophen 10-325* (Hydrocodon-Acetaminophn 10-325*) 1 Each Tablet 1 TAB ORAL Q6H PRN for For Pain, TAB Lisinopril (Lisinopril*) 20 Mg Tablet 20 MG ORAL BID, TAB Meloxicam* (Meloxicam*) 15 Mg Tablet 15 MG PO DAILY, TAB Metoclopramide Hcl* (Reglan*) 10 Mg Tablet 10 MG ORAL BID, TAB Nitroglycerin (Nitrostat) 0.4 Mg Tab.subl 0.4 MG SL Q5M X3 DOSES PRN for CHEST PAIN, #25 TAB 0 Refills Pregabalin (Lyrica) 25 Mg Capsule 25 MG ORAL BID, CAP Ranitidine Hcl* (Zantac*) 150 Mg Tablet 150 MG ORAL BID, #30 TAB 0 Refills Ranolazine* (Ranexa*) 500 Mg Tab.er.12h 500 MG ORAL BID, #60 TAB 0 Refills Tramadol Hcl* (Ultram*) 50 Mg Tablet 50 MG ORAL Q6H PRN for For Pain, #30 TAB 0 Refills Discharge Condition Upon Discharge: stable Discharge Disposition Patient was discharged to Home (01) Discharge Diagnoses: Discharge Instructions Discharge Instructions Special Instructions I have been assigned to complete a D/C Summary on this account. I was not involved in the patient management Chela Christensen NP (Vanchtein) Apr 06, 2016 15:30
--- NOTE | 2016-04-06 19:07 | Cardiology Report ---
APPROVED REPORT EKG Measurement Heart [id number] Normal sinus rhythm Anterior infarct, age undetermined Abnormal ECG
--- NOTE | 2016-04-07 04:17 | Discharge Summary 2 SIG ---
DATE OF ADMISSION: 04/02/2016 DATE OF DISCHARGE: 04/03/2016 REASON FOR ADMISSION : 61-year-old male with multiple cardiac risk factors, including hypertension, hyperlipidemia, obesity, and history of coronary artery disease with multiple PCI, presented with chest pain on the left side radiating to his shoulder and the back. He felt the same pain, when he was exercising two months ago and at that time doctor told him that he needs another treadmill. The treadmill was scheduled for the next day after the patient appeared in the emergency room. The patietn actually declined chest pain but reported heavy chest pressure. First troponin was negative. The patient was admitted for observation due to the significant cardiac risk factors. ADMITTING DIAGNOSES: 1. Chest pain, rule out acute coronary syndrome. 2. Coronary artery disease with history of percutaneous coronary intervention. HOSPITAL COURSE: The patient was admitted on telemetry floor. Serial troponin were negative. EKG revealed normal sinus rhythm. No ST changes. No ectopy. Therefore, the patient was ruled for acute myocardial infarction. Chest x-ray, no acute cardiopulmonary disease. Echocardiogram revealed preserved ejection fraction 50% to 55% and right ventricular systolic pressure of 17 , mild left ventricular hypertrophy. Cardiology consult was requested. Field Hockey Coach ordered stress test. Per shell sieve operator - if stress test prove to be negative, the patient could be discharged home since he has scheduled to see shell sieve operator next day. Nuclear stress test was negative. Blood pressure was managed with SANDOVAL-inhibitor, calcium-channel khushi and hydrochlorothiazide. Field Hockey Coach stopped nitrates at this time since the patient felt very dizzy. Dizziness subsided, Continue aspirin and statin. The patient with significant neuropathic pain in bilateral lower extremities. Continue pain management. Due to the negative stress test and due to rapid and unexpected improvement in patient condition, the patient was discharged on the next day and follow up with the shell sieve operator as scheduled. DISCHARGE MEDICATIONS: See medication reconciliation list. DISCHARGE INSTRUCTIONS: The patient to follow up with shell sieve operator the day after discharge, as scheduled. FINAL DIAGNOSES: 1. Atypical chest pain. 2. Acute coronary syndrome, ruled out. 3. Coronary artery disease with history of multiple percutaneous coronary intervention. 4. Hypertension. 5. Hyperlipidemia. 6. Obesity. 7. Neuropathic pain in bilateral lower extremities. So Preciado M.D. I have been assigned to dictate discharge summary on this account and I was not involved in the patient's management. Chela Christensen (Vanchtein) N.PDeion DR: Sachi JOB#: [id number] CC: MARYJO
--- NOTE | 2016-04-07 14:01 | Diagnostic Imaging Report ---
Indication: Chest Pain Comparison: 10/03/2005 A single view chest radiograph was obtained. Findings: No definite infiltrate or pulmonary vascular congestion identified. The heart is enlarged. The aorta is mildly enlarged consistent with atherosclerotic vascular disease. The bones are osteopenic. Impression: No acute disease
== END 2016-04-03 19:25 | disposition home or self-care (01) | DRG 198 ==
LOC: EDBD 16:07 → EMR 16:49 → 2E 18:40 → EDBEDREQ 04-03 01:17
DX: R07.89 Other chest pain (principal); I25.10 Atherosclerotic heart disease of native coronary artery without angina pectoris; G62.9 Polyneuropathy, unspecified; I10 Essential (primary) hypertension; Z95.5 Presence of coronary angioplasty implant and graft; E78.5 Hyperlipidemia, unspecified; E66.9 Obesity, unspecified; M54.9 Dorsalgia, unspecified
CPT/HCPCS: 36415; 71010; 78452; 80053; 80061; 80300; 81003; 82550; 83880; 84443; 84484; 85025; 85610; 85730; 86140; 93005; 93017; 93306